=== PATIENT | male | born 1960 ===

== ENCOUNTER 2019-06-18 07:00 | Day surgery (SDC) | payer BC, OTHER ==
[2019-06-18] VITALS (9 sets, daily range): BP systolic 102–120; BP diastolic 56–64
[~2019-06-18] VITALS: Ht 180.3 cm; Wt 86.2 kg
--- NOTE | 2019-06-18 06:44 | Anethesia Preoperative Eval ---
Anesthesia Pre-op PMH/ROS General Date of Evaluation: Jun 18, 2019 Anesthesiologist: Portillo ASA Score: ASA 2 Mallampati Score Class I : Soft palate, uvula, fauces, pillars visible Class II: Soft palate, uvula, fauces visible Class III: Soft palate, base of uvula visible Class IV: Only hard plate visible Mallampati Classification: Class II Surgeon: Lucas Diagnosis: Anal warts Surgical Procedure: excision fulguration condyloma, anoscopy with biopsies Anesthesia History: none Family History: no anesthesia problems Allergies: Coded Allergies: No Known Allergies (Unverified , 06/18/19) Medications: see eMAR Patient NPO?: Yes NPO Date: Jun 17, 2019 NPO Time: 22:00 Past Medical History Cardiovascular: Denies: HTN, CAD, [place], valve dz, arrhythmia, other Pulmonary: Denies: asthma, COPD, LC, other Gastrointestinal/Genitourinary: Denies: GERD, CRI, ESRD, other Neurologic/Psychiatric: Reports: depression/anxiety; Denies: dementia, CVA, TIA, other Endocrine: Denies: DM, hypothyroidism, steroids, other HEENT: Denies: cataract (L), cataract (R), glaucoma, [place] (L), [place] (R), other Hematology/Immune: Reports: other - HIV, hep B; Denies: anemia, DVT, bleeding disorder Musculoskeletal/Integumentary: Denies: OA, RA, DJD, DDD, edema, other PSxH Narrative: Denies Anesthesia Pre-op Phys. Exam Physician Exam see chart Constitutional: NAD Cardiovascular: RRR Respiratory: CTA Airway Exam Mallampati Score: Class II MO: full ROM: full Anesthesia Pre-op A/P Labs see chart Studies Pre-op Studies: EKG - sr Risk Assessment & Plan Assessment: asa II Plan: MAC Status Change Before Surgery: No Pre-Antibiotics Drug: Indu Pritchard MD Jun 18, 2019 06:44
[2019-06-18] MEDS ORDERED: VITAMIN B COMP1 EAC5 PO (07:27)
[2019-06-18] MEDS ORDERED: CELEXA20 MG ORAL (07:27)
[2019-06-18] MEDS ORDERED: LAMICTAL100 MG ORAL (07:27)
[2019-06-18] MEDS ORDERED: FISH OIL CAP1000 MG ORAL (07:27)
[2019-06-18] MEDS ORDERED: VITAMIN D PO (07:27)
[2019-06-18] MEDS ORDERED: MULTIVITAMINS1 EA14 PO (07:27)
[2019-06-18] MEDS ORDERED: GENVOYA TABLET1 EACH PO (07:27)
--- NOTE | 2019-06-18 07:31 | Pre-Procedure Note/Attestation ---
Pre-Procedure Note/Attestation Complete Prior to Procedure Planned Procedure: not applicable Procedure Narrative: Excision and fulguration of anal lesions with high-resolution anoscopy Indications for Procedure Pre-Operative Diagnosis: HIV, anal lesions Attestation I attest that I discussed the nature of the procedure; its benefits; risks and complications; and alternatives (and the risks and benefits of such alternatives ), prior to the procedure, with the patient (or the patient's legal guest service representative). I attest that, if there was a reasonable possibility of needing a blood transfusion, the patient (or the patient's legal guest service representative) was given the [place] [employer] [facility] standardized written summary, pursuant to the [place] Blood Safety Act ([place] Health and Safety Code # 1645, as amended). I attest that I re-evaluated the patient just prior to the surgery and that there has been no change in the patient's H&P, except as documented below: Sparkle Zavala MD Jun 18, 2019 07:31
[2019-06-18] MEDS ORDERED: Propofol 200mg/20ml IV ONE (07:52)
[2019-06-18] MEDS ORDERED: fentaNYL 100 mcg/2 mL IV ONE (07:52)
[2019-06-18] MEDS ORDERED: Lidocaine 1% MPF 10mg/ml 5ml ONE (07:52)
[2019-06-18] MEDS ORDERED: Midazolam 2mg/2ml Inj ONE (07:52)
[2019-06-18] MEDS ORDERED: LR 1000ml ONE (08:00)
[2019-06-18] MEDS ORDERED: NS Irrig 1000ml ONE (08:00)
[2019-06-18] MEDS ORDERED: Sterile Water Irrig 1000ml IRRIG ONE (08:00)
[2019-06-18] MEDS ORDERED: LR 1000ml 1,000 ML IVLG SCH (08:03)
[2019-06-18] MEDS ORDERED: Ropivacaine 5mg/ml Vial 30ml INJ ONE (08:06)
[2019-06-18] MEDS ORDERED: EPINEPHrine 1mg/1ml Amp ONE (08:06)
[2019-06-18] MEDS ORDERED: Dexamethasone 4mg/ml vial ONE (08:06)
[2019-06-18] MEDS ORDERED: Bupivacaine 0.25% Inj 30ml INJ ONE (08:06)
[2019-06-18] MEDS ORDERED: Acetic Acid 3% Solution 15ml TOPIC ONE (08:15)
[2019-06-18] MEDS ORDERED: DiphenhydrAMINE 50mg/ml Inj IVP PRN (08:15)
[2019-06-18] MEDS ORDERED: fentaNYL 100 mcg/2 mL IV PRN (08:15)
[2019-06-18] MEDS ORDERED: Ketorolac 30mg Inj IV PRN (08:15)
[2019-06-18] MEDS ORDERED: Midazolam 2mg/2ml Inj IVP PRN (08:15)
[2019-06-18] MEDS ORDERED: Metoclopramide 10mg/2ml Inj IVP PRN (08:15)
[2019-06-18] MEDS ORDERED: Hydromorphone 0.5mg/0.5ml inj IVP PRN (08:15)
[2019-06-18] MEDS ORDERED: LORazepam Inj 2mg/ml 1ml IV PRN (08:15)
--- NOTE | 2019-06-18 08:48 | Immediate Post-Op Evaluation ---
Immediate Post-Op Evalulation Immediate Post-Op Evalulation Procedure: Excision fulguration condyloma, anoscopy and biopsy Date of Evaluation: Jun 18, 2019 Time of Evaluation: 08:51 IV Fluids: 500 Blood Products: 0 Estimated Blood Loss: min Urinary Output: 0 Blood Pressure Systolic: 120 Blood Pressure Diastolic: 64 Pulse Rate: 71 Respiratory Rate: 16 O2 Sat by Pulse Oximetry: 96 Temperature (Fahrenheit): 97.6 Pain Score (1-10): 0 Nausea: No Vomiting: No Complications 0 Patient Status: awake, reacts, patent, none Hydration Status: adequate Drug: Cefoxitin 2g Given Within 1 Hr of Incision: Yes Indu Salamanca MD Jun 18, 2019 08:48
--- NOTE | 2019-06-18 08:49 | Brief Operative Note ---
Immediate Post Operative Note Operative Note Pre-op Diagnosis: HIV, anal lesions Procedure: Excision and fulguration of anal condyloma with high-resolution anoscopy Post-op Diagnosis: anal condyloma Post-op Diagnosis: same as pre-op Findings: consistent w/pre-op dx studies Surgeon: Sparkle Zavala MD Anesthesiologist: Indu Nath MD Anesthesia: local, moderate sedation Specimen: yes Complications: none Condition: stable Fluids: See anesthesia record Estimated Blood Loss: minimal Implant(s) used?: No Sparkle Zavala MD Jun 18, 2019 08:49
--- NOTE | 2019-06-18 08:50 | 48 Hour Post Anesthesia Eval ---
Post Anesthesia Evaluation Procedure: Excision fulguration condyloma, anoscopy and biopsy Date of Evaluation: Jun 18, 2019 Airway: patent Nausea: No Vomiting: No Pain Intensity: 0 Hydration Status: adequate Cardiopulmonary Status: at baseline Mental Status/LOC: patient returned to baseline Post-Anesthesia Complications: 0 Follow-up care needed: ready to discharge Indu Salamanca MD Jun 18, 2019 08:50
--- NOTE | 2019-06-18 14:15 | Operative Note - Dictated ---
DATE OF OPERATION: 06/18/2019 PREOPERATIVE DIAGNOSIS: History of HIV, anal condyloma. POSTOPERATIVE DIAGNOSIS: History of HIV, anal condyloma. PROCEDURE: Excision and fulguration of anal condyloma with high-resolution anoscopy. SURGEON: Sparkle Zavala M.D. ANESTHESIOLOGIST: Indu Nath M.D. ANESTHESIA: Propofol sedation with local anesthetic. INDICATION FOR PROCEDURE: The patient is a 59-year-old [place] male, who was sent to my office by his physician, Dr. 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 It was determined at this time to proceed with excision and fulguration under sedation. DESCRIPTION OF PROCEDURE: Upon consent from the patient, the patient was brought to the operating room and placed in the prone mehdi-knife position on the operating table. Once adequate sedation established with propofol drip, the patient's buttocks were prepped and draped in the usual standard surgical fashion. A 35 mL of 0.5% ropivacaine with epinephrine mixed with 6 mg of dexamethasone was used as a perianal and pudendal block. A Hill-Cardona retractor was placed into the anal canal. There was noted to be moderate internal hemorrhoids circumferentially. There was noted to be an area of condylomatous change in the right anterior region. Multiple biopsies were taken. All 4 quadrants of the perianal region, anal verge, and dentate line including that area condylomatous change. The anal canal was stained with 2% acetic acid and all areas were stained white electro-fulgurated as well including that area of leukoplakia and condylomatous change. The anal canal then irrigated and hemostasis confirmed. Sterile dry dressing was used as an outer dressing. Sponge, needle, instrument counts were correct at the end of the case. The patient was awakened from anesthesia and brought to postanesthesia recovery in stable condition. ESTIMATED BLOOD LOSS: Less than 5 mL. DRAINS: None. SPECIMENS: Multiple biopsies of the perianal region, anal verge, and dentate line. COMPLICATIONS: None. Sparkle Zavala M.D. DR: SAUNDRA JOB#: [id number] CC: Sparkle Zavala M.D.; Fax#: [phone] Rashi Schwartz M.D.
== END 2019-06-18 09:50 | disposition home or self-care (01) ==
LOC: SUR 07:00
DX: A63.0 Anogenital (venereal) warts (principal); B20 Human immunodeficiency virus [HIV] disease; F32.9 Major depressive disorder, single episode, unspecified; F41.9 Anxiety disorder, unspecified; Z86.19 Personal history of other infectious and parasitic diseases
CPT/HCPCS: 46606; 46910; J0171; J0690; J1100; J2250; J2704; J2795; J3010; J7120; 94003; 94150